=== PATIENT | female | born 1980 | race Caucasian/White ===

== ENCOUNTER → 2019-06-24 | Day surgery (SDC) | payer OTHER ==
[2019-06-23 09:32] VITALS: BMI 26.0
[~2019-06-24] MED LIST: ALBUTEROL NEB (CONC) 2.5 MG/0.5 ML INHALATION ONE; ATROPINE SULFATE 0.4 MG/ML 1 ML VIAL IM ONE; KETAMINE 10 MG/ML 20 ML VIAL ONE; LIDOCAINE 1% 20 ML VIAL (10MG/ML) FOR IV START INTRADERMA ONE; LIDOCAINE 1% INJ 10MG/ML (20 ML MDV) ONE; LIDOCAINE 2% (PF) 20 MG/ML 5 ML VIAL INHALATION ONE; LIDOCAINE 2% INJ 20 MG/ML INTRATRACH ONE; LIDOCAINE VISCOUS 300 MG/15 ML CUP MUCOUS MEM ONE; MIDAZOLAM 2 MG/2 ML VIAL ONE; PROPOFOL 10 MG/ML 20 ML VIAL IV ONE; SODIUM CHLORIDE 0.9% 1,000 ML IV SCH; fentaNYL (PF) 50 MCG/ML 2 ML AMP ONE
[2019-06-24 11:25] VITALS: RESP 16; TEMP 97.9
[2019-06-24 12:56] VITALS: BP 120/75; PULSE 84
--- NOTE | 2019-06-25 05:28 | PCN ---
PROCEDURE NOTE PROCEDURE: Bronchoscopy, airway examination, therapeutic lavage, BAL right middle lobe. PREOPERATIVE DIAGNOSIS: Asthma. POSTOPERATIVE DIAGNOSIS: Asthma and possible aspiration. OPERATORS: Dr. Red and Cody Orr. DESCRIPTION OF PROCEDURE: There was informed consent and universal timeout. The patient's procedure took place in room #3. NAILER OPERATOR provided general anesthesia/unconscious sedation. After the patient was adequately sedated and being fully monitored, the bronchoscope was inserted through the right nostril. It passed through the right nasopharynx into the oropharynx. The hypopharynx was identified and topicalized. The anterior commissure, true cords, false cords, arytenoids, piriform sinuses, right and left vallecula, epiglottis and piriform sinuses all appeared relatively normal. After topicalization, the bronchoscope was pushed through the glottic opening into the trachea. The trachea appeared normal. There were thin secretions noted throughout the trachea. Tracheal sanjay was sharp. Right and left mainstem were topicalized. Right upper lobe and its 3 segments, right middle lobe and its 2 segments, right lower lobe and its 5 segments, left upper lobe proper and its 2 segments, lingula and its 2 segments and left lower lobe and its 4 segments all had similar findings of mild diffuse bronchitis throughout. There was mild erythema and hyperemia in the airways. There was some purulent looking secretions noted throughout. There was also some dark material noted within the airways which we noted when we did the BAL. This could be vegetable matter and the patient may be aspirating. She was concerned about feeling like there was obstruction in her windpipe in the subglottic area. The subglottic area was studied carefully. It was normal. There was no dominant mass or tumor. There was no bleeding. The bronchoscope was positioned into the right middle lobe. The BAL took place. Roughly 30 mL were recovered. The fluid was cloudy with black material in it. It will be sent for analysis. The bronchoscope was then withdrawn. There was no immediate complication. The patient tolerated the procedure well. MMODL / IJN: [id number] /
== END ==
LOC: ORWHC2ENDO 11:00
PROVIDERS: ATTEND Internal Medicine Critical Care Medicine
DX: J40 Bronchitis, not specified as acute or chronic (principal); J45.909 Unspecified asthma, uncomplicated; F41.9 Anxiety disorder, unspecified; Z82.49 Family history of ischemic heart disease and other diseases of the circulatory system; Z83.6 Family history of other diseases of the respiratory system; Z87.891 Personal history of nicotine dependence; R13.10 Dysphagia, unspecified; K21.9 Gastro-esophageal reflux disease without esophagitis; Z79.51 Long term (current) use of inhaled steroids; Z79.899 Other long term (current) drug therapy
CPT/HCPCS: 94640; 81025; 87798 ×3; 87496; 87498; 87529; 88108; 88305; 87252; 87502; 87634; 87070; 87205; 87116; 87102; 87206; 31624; J2001 ×3; J2250; J0461; J3010; J2704

== ENCOUNTER → 2019-07-19 | Outpatient (CLI) | payer OTHER ==
[2019-07-20 01:09] LABS: Egg White IgE <0.10 kU/L
[2019-07-20 01:10] LABS: Codfish IgE <0.10 kU/L
[2019-07-20 01:11] LABS: Peanut IgE <0.10 kU/L
[2019-07-20 01:12] LABS: Clam IgE <0.10 kU/L; Shrimp IgE <0.10 kU/L; Soybean IgE <0.10 kU/L
[2019-07-20 01:21] LABS: Dermato. farinae IgE <0.10 kU/L; Dog Dander IgE 0.24 kU/L
[2019-07-20 01:22] LABS: Cockroach IgE <0.10 kU/L
[2019-07-20 01:23] LABS: Alternaria alternata IgE <0.10 kU/L; Aspergillus fumagatus IgE <0.10 kU/L; Cladosporian herbarum IgE <0.10 kU/L
[2019-07-20 01:24] LABS: Birch IgE <0.10 kU/L; Maple (Box Elder) IgE <0.10 kU/L; Oak IgE <0.10 kU/L
[2019-07-20 01:25] LABS: Elm IgE <0.10 kU/L; Ragweed,Common IgE 0.23 kU/L
[2019-07-20 01:26] LABS: Red Top (Bentgrass) IgE 0.36 kU/L
[2019-07-20 03:15] LABS: Walnut IgE (Food) <0.10 kU/L
[2019-07-20 03:17] LABS: Scallop IgE <0.10 kU/L
== END | disposition home or self-care (01) ==
LOC: LABWHC1 16:17
PROVIDERS: ATTEND Internal Medicine Critical Care Medicine
DX: J45.909 Unspecified asthma, uncomplicated (principal)
CPT/HCPCS: 36415; 82785; 85008; 86003